=== PATIENT | male | born 1965 | race Caucasian/White ===

== ENCOUNTER 2016-08-17 16:48 | Emergency (ER) | payer OTHER ==
[~2016-08-17] VITALS: Ht 185.4 cm; Wt 106.6 kg
--- NOTE | 2016-08-17 18:08 | ED GI/GU/ABDOMINAL COMPLAINT ---
History of Present Illness General Chief Complaint: Abdominal Pain/Flank Pain Stated Complaint: DIFFICULTY URINATING, LOWER ABD PAIN Source: patient Exam Limitations: no limitations Vital Signs & Intake/Output Vital Signs & Intake/Output Vital Signs Date Time Temp Pulse Resp B/P B/P Pulse O2 O2 Flow FiO2 Mean Ox Delivery Rate 08/175 100.0 82 17 120/74 96 Room Air 08/17 1934 99.8 89 17 128/78 98 Room Air 08/17 1758 100.7 110 18 121/86 97 Room Air Allergies Coded Allergies: NO KNOWN ALLERGIES (10/25/10) Reconcile Medications Ciprofloxacin HCl 500 MG TABLET 1 TAB PO BID INFECTION Levothyroxine Sodium (Synthroid) 200 MCG TABLET 1 TAB PO AD THYROID (Reported ) Levothyroxine Sodium 100 MCG TABLET 1 TAB PO QSUN THYROID (Reported) Oxycodone HCl/Acetaminophen (Percocet 5-325 MG Tablet) 5 MG-325 MG TABLET 1 TAB PO BID PRN PAIN Triage Note: RECEIVED 51 YO MALE C/O URGE TO URINATE STARTED FRIDAY BUT ONLY ABLE TO URINATE SMALL AMOUNTS OF URINE. LOWER ABDOMINAL PAIN STARTED , THEN PAIN RADIATED TO RIGHT TESTICLE. SOME TESTICULAR SWELLING NOTED. LYING FLAT ON BED RELIEVES PAIN. Triage Nurses Notes Reviewed? yes HPI: 51-year-old male arrived to triage to room 4 complaining of urinary retention with scrotal pain. He reports he noticed a heaviness sensation and pain to his right testicle starting on Friday. He reports he cannot stand too long and he cannot sit too long because this exacerbates the pain. He denies any fever chills, he is sexually active with one partner. He denies any abdominal pain or flank pain. Pain is moderate to severe at this time but it feels better when he is laying flat. At this time he does not want anything for pain. Past History Travel History Traveled to [place] past 21 day No Medical History Any Pertinent Medical History? see below for history Neurological: NONE EENT: NONE Cardiovascular: AFIB Respiratory: obstructive sleep apnea Gastrointestinal: NONE Hepatic: NONE Renal: NONE Musculoskeletal: NONE Psychiatric: NONE Endocrine: hypothyroidism Blood Disorders: NONE Cancer(s): NONE Influenza Vaccine: 04/04/12 Surgical History Surgical History: non-contributory Psychosocial History Who do you live with Significant Other Services at Home None What is your primary language Welsh Tobacco Use: Never used Family History Hx Contributory? No Review of Systems Review of Systems Constitutional: Denies: no symptoms. EENTM: Denies: no symptoms. Respiratory: Reports: no symptoms. Cardiovascular: Reports: no symptoms. GI: Reports: no symptoms. Genitourinary: Reports: see HPI, frequency, hesitation, urgency. Musculoskeletal: Reports: no symptoms. Skin: Reports: no symptoms. Neurological/Psychological: Reports: no symptoms. Hematologic/Endocrine: Reports: no symptoms. Immunologic/Allergic: Reports: no symptoms. All Other Systems: Reviewed and Negative Physical Exam Physical Exam General Appearance: well developed/nourished, no apparent distress, alert, awake , moderate distress Neck: normal inspection, full range of motion Respiratory: normal breath sounds, chest non-tender, no respiratory distress Cardiovascular: irregularly irregular Gastrointestinal: normal bowel sounds, soft, non-tender Male Genitals: erythema, scrotum tenderness (R), testicular tenderness (R) Back: normal inspection, normal range of motion Extremities: normal range of motion Neurologic/Psych: no motor/sensory deficits, awake, alert, oriented x 3, normal gait, normal mood/affect Skin: intact, normal color, warm/dry Core Measures ACS in differential dx? No Severe Sepsis Present: No Septic Shock Present: No Progress Differential Diagnosis: epididymitis, orchitis, testicular torsion, urinary retention, UTI/pyelo Plan of Care: Orders Procedure Date/time Status URINALYSIS 08/17 174 Complete LIPASE 08/17 1746 Complete COMPREHENSIVE METABOLIC PANEL 08/17 174 Complete CBC WITHOUT DIFFERENTIAL 08/17 1745 Complete AMYLASE 08/17 174 Complete Laboratory Tests 08/17/16 1930: Urinalysis LIGHT H, Urine Color ORANG H, Urine Clarity HAZY H, Urine pH 6.0, Ur Specific [place] 1.025, Urine Protein 100 H, Urine Ketones 40 H, Urine Nitrite NEG, Urine Bilirubin NEG@ICTO, Urine Urobilinogen 0.2, Ur Leukocyte Esterase MOD H, Ur Microscopic SEDIMENT EXAMINED, Urine RBC 50-75 H, Urine WBC 50-75 H, Urine Bacteria FEW H, Urine Hemoglobin LARGE H, Urine Glucose NEG 08/17/16 1815: Anion Gap 12, Estimated GFR > 60, BUN/Creatinine Ratio 14.4, Glucose 111 H, Calcium 8.8, Total Bilirubin 1.1, AST 43, ALT 54, Alkaline Phosphatase 45, Total Protein 7.4, Albumin 4.1, Globulin 3.3, Albumin/Globulin Ratio 1.2, Amylase 32, Lipase 47, CBC w Diff NO MAN DIFF REQ, RBC 4.36 L, MCV 100.7 H, MCH 33.6 H, RDW 13.9, MPV 8.7, Gran % 80.8 H, Lymphocytes % 7.2 L, Monocytes % 11.9 H, Eosinophils % 0, Basophils % 0.1, Absolute Granulocytes 11.1 H, Absolute Lymphocytes 1.0 L, Absolute Monocytes 1.6 H, Absolute Eosinophils 0, Absolute Basophils 0, PUBS MCHC 33.4 Diagnostic Imaging: Viewed by Me: Ultrasound. Discussed w/RAD: Ultrasound. Initial ED EKG: none Comments: Percocet and Cipro given. Waiting for U/S results. PATIENT: MALINA ROCA JR PRESENT AGE: 51 PATIENT ACCOUNT NO: [id number] : 66 LOCATION: [facility] ORDERING PHYSICIAN: ALEX MORE APRN SERVICE DATE: 08/17/16 EXAM TYPE: US - US-TESTICULAR EXAMINATION: US TESTICULAR CLINICAL INFORMATION: Swollen tender erythematous right scrotal area COMPARISON: None TECHNIQUE: Multiple sonographic views of the testicles are obtained. FINDINGS: The testicles are normal in size, shape, and echotexture. There is normal symmetric Doppler flow to the testicles bilaterally The right testicle measures 5.2 x 3.6 x 3.7 cm in size for a volume of 49.2 mL. Incidental 0.6 cm right epididymal cyst. There is a septated right-sided hydrocele noted. There is fullness to the right epididymis body and tail which demonstrates increased Doppler flow. Overall the appearance is suggestive of an epididymitis. The left testicle measures 4.4 x 2.3 x 3.6 cm in size for a volume of 25.9. Epididymis is unremarkable. IMPRESSION: Abnormal increased Doppler flow to a prominent right epididymis suggesting underlying epididymitis. Complex right-sided hydrocele noted as well. The testicles themselves demonstrate normal echotexture and flow. DICTATED BY: EDY MILTON MD DATE/TIME DICTATED:08/17/162139 [employer] HARNESS RACING:MARU DATE/TIME TRANSCRIBED:08/17/162139 CONFIDENTIAL, DO NOT COPY WITHOUT APPROPRIATE AUTHORIZATION. <Electronically signed in Other Vendor System> SIGNED BY: EDY MILTON MD 2146 U/S results explained to patient and family. Ready to go home. He will follow up with Dr. Venegas and he is good with d/c plan. Departure Departure Time of Disposition: 2150 Disposition: HOME OR SELF CARE Condition: Stable Clinical Impression Primary Impression: Epididymitis Referrals: KERVIN WONG,POPPY STEINER MD,SABA Browne (PCP/Family) Additional Instructions: Cipro 500 mg twice a day for the next 7 days. Please follow up with Dr. Venegas this week. Percocet as needed for the pain. Please return to the emergency department for any fever, chills, abdominal pain, nausea, vomiting. Departure Forms: Customer Survey General Discharge Information Prescriptions: Current Visit Scripts Ciprofloxacin HCl 1 TAB PO BID #20 TAB Oxycodone HCl/Acetaminophen (Percocet 5-325 MG Tablet) 1 TAB PO BID PRN PAIN #10 TAB Comments PLEASE FOLLOW UP WITH Dr. Venegas this week. Take cipro 500 mg twice a day and Percocet as needed for pain. Please return for any increase in urinary retention or any other concerning symptoms.
[2016-08-17] MEDS ORDERED: SYNTHROID200 MCG PO (18:19)
[2016-08-17] MEDS ORDERED: LEVOTHYROXINE100 MC1 PO (18:19)
[2016-08-17 18:24] LABS: ABSOLUTE BASOPHIL COUNT 0 /CUMM (0.0-0.2); ABSOLUTE EOSINOPHIL COUNT 0 /CUMM (0.0-0.7); ABSOLUTE GRANULOCYTE CT 11.1 /CUMM (1.4-6.5); ABSOLUTE MONOCYTE COUNT 1.6 /CUMM (0.10-0.60); BASOPHIL % 0.1 % (0.0-2.0); EOSINOPHIL % 0 % (0-5); GRANULOCYTE % 80.8 % (42.2-75.2); MEAN CORPUSCULAR HGB 33.6 PG (27.0-31.0); MEAN CORPUSCULAR HGB CONC 33.4 G/DL (33.0-37.0); MEAN CORPUSCULAR VOLUME 100.7 FL (80.0-94.0); MEAN PLATELET VOLUME 8.7 FL (7.4-10.4); PLATELET COUNT 201 /CUMM (130-400); RBC DISTRIBUTION WIDTH 13.9 % (11.5-14.5); RED BLOOD CELL CT 4.36 /CUMM (4.70-6.10); WHITE BLOOD CELL COUNT 13.7 /CUMM (4.8-10.8)
--- NOTE | 2016-08-17 21:47 | ULTRASOUND REPORT ---
EXAMINATION: US TESTICULAR CLINICAL INFORMATION: Swollen tender erythematous right scrotal area COMPARISON: None TECHNIQUE: Multiple sonographic views of the testicles are obtained. FINDINGS: The testicles are normal in size, shape, and echotexture. There is normal symmetric Doppler flow to the testicles bilaterally The right testicle measures 5.2 x 3.6 x 3.7 cm in size for a volume of 49.2 mL. Incidental 0.6 cm right epididymal cyst. There is a septated right-sided hydrocele noted. There is fullness to the right epididymis body and tail which demonstrates increased Doppler flow. Overall the appearance is suggestive of an epididymitis. The left testicle measures 4.4 x 2.3 x 3.6 cm in size for a volume of 25.9. Epididymis is unremarkable. IMPRESSION: Abnormal increased Doppler flow to a prominent right epididymis suggesting underlying epididymitis. Complex right-sided hydrocele noted as well. The testicles themselves demonstrate normal echotexture and flow.
[2016-08-17] MEDS ORDERED: PERCOCET 5-3251 EACH PO (21:48)
[2016-08-17] MEDS ORDERED: CIPROFLOXACIN500 M2 PO (21:48)
[2016-08-17 21:55] VITALS: BP 120/74
== END 2016-08-17 22:00 ==
LOC: ERH 16:48
PROVIDERS: Physician Assistant Medical
DX: R33.9 Retention of urine, unspecified (principal); N45.1 Epididymitis
CPT/HCPCS: 81001